=== PATIENT | female | born 1995 ===

== ENCOUNTER 2021-01-13 13:08 | Outpatient (CLI) | payer OTHER | END 2021-01-13 14:52 | disposition home or self-care (01) | LOC: PRENATAL 13:08 | PROVIDERS: ATTEND Obstetrics & Gynecology Maternal & Fetal Medicine | DX: O35.0XX1 Maternal care for (suspected) central nervous system malformation in fetus, fetus 1 (principal); O35.3XX1 Maternal care for (suspected) damage to fetus from viral disease in mother, fetus 1; O98.512 Other viral diseases complicating pregnancy, second trimester; Z36.89 Encounter for other specified antenatal screening; Z3A.22 22 weeks gestation of pregnancy ==

== ENCOUNTER 2021-05-06 11:00 | Inpatient (IN) | payer OTHER ==
[~2021-05-06] VITALS: Ht 160 cm; Wt 64.9 kg
[2021-05-11] MEDS ORDERED: PRENATAL TABLE1 EAC1 PO (07:26)
[2021-05-11] MEDS ORDERED: FOLIC ACID0.8 M1 PO (07:27)
[2021-05-11] MEDS ORDERED: IRON325 MG PO (07:27)
== END 2021-05-14 13:10 | disposition home or self-care (01) | DRG 788 ==
LOC: EDBD 05-11 05:35 → LDR 05-11 05:35 → OB/GYN 05-11 21:54 → SURG-SUITE 05-12 08:23 → SURH 05-14 11:00 → SURG-SUITE 05-14 13:10
PROVIDERS: ADMIT Obstetrics & Gynecology; ATTEND Obstetrics & Gynecology
PROC: 4A1HXFZ Monitoring of Products of Conception, Cardiac Rhythm, External Approach (ICD-10-PCS; 2021-05-11)
PROC: 10D00Z1 Extraction of Products of Conception, Low, Open Approach (ICD-10-PCS; principal; 2021-05-11 20:00)
DX: O62.1 Secondary uterine inertia (principal); Z37.0 Single live birth; Z3A.39 39 weeks gestation of pregnancy